=== PATIENT | female | born 1965 | race African-American/Black ===

== ENCOUNTER 2024-06-30 13:34 | Emergency (ER) | payer BC, SELFPAY ==
--- NOTE | 2024-06-30 13:45 | ED_ITS ---
HPI - General Adult General Chief complaint: Neck Pain/Injury Stated complaint: Neck Pain Time Seen by Provider: 06/30/24 13:47 Source: patient, RN notes reviewed and old records reviewed Mode of arrival: ambulatory Limitations: no limitations History of Present Illness HPI narrative: 59-year-old female presents to the [facility] with bilateral neck pain, no midline tenderness since Tuesday, 3 days. No redness, no erythema. No rashes noted. Patient reports pain with movement. Especially when turning head. Able to talk chin to chest without issue. Able to shrug shoulders. Denies any numbness or tingling below sore area. No loss or retention of bowel or bladder. No midline tenderness. Has taken Tylenol. Related Data Home Medications ?Medication ?Instructions ?Recorded ?Confirmed ?Last Taken ?Type atorvastatin 40 mg tablet mg 06/30/24 Unknown History empagliflozin 25 mg tablet mg 06/30/24 Unknown History (Jardiance) estradiol 1 mg tablet mg 06/30/24 Unknown History ferrous sulfate 325 mg (65 mg mg 06/30/24 Unknown History iron) tablet (FeroSul) lisinopril 5 mg tablet mg 06/30/24 Unknown History semaglutide 2 mg/dose (8 mg/3 mL) mg subcut 06/30/24 Unknown History subcutaneous pen injector (Ozempic) Allergies Allergy/AdvReac Type Severity Reaction Status Date / Time nortriptyline Allergy Mild Headache Verified 06/30/24 13:55 tramadol Allergy Mild Headache Verified 06/30/24 13:55 Review of Systems 2 Review of Systems: All systems reviewed & are unremarkable except as noted in HPI and below Constitutional: Constitutional: Reports no additional constitutional complaints ENT: Reports system reviewed and no additional complaints, except as documented Cardiovascular: Cardiovascular: Reports no additional cardiovascular complaints, Denies chest pain and Denies dyspnea Respiratory: Respiratory: Reports no additional respiratory complaints, Denies chest congestion, Denies cough and Denies dyspnea Musculoskeletal: Musculoskeletal: Reports as per HPI Integumentary/Breasts: Skin/Breast: Reports system reviewed and no additional complaints, except as docu [facility] Past Medical History Medical History History of anemia Type 2 diabetes mellitus High cholesterol Hypertension Surgical History Surgical History History of hysterectomy History of knee surgery Comments At the time of my signature, I reviewed and agree with the nursing past medical, surgical, social, and family history. There is no relevant family history pertinent to the patient complaint. Exam 2 Const: General: cooperative, healthy appearing, comfortable, no acute distress, well developed, alert and well nourished Nutritional Appearance: w ell nourished Orientation/consciousness: patient oriented x3 Limitations: no limitations HENMT: Head: normal to inspection Throat: posterior oropharynx normal, uvula midline and no uvular edema Eyes: General: appearance normal, both eyes and all related structures A lignment and Position: alignment normal Eyelids: eyelids normal Pupils: E qual, round and reactive pupils present Neck: Neck: normal visual inspection, full ROM, no lymphadenopathy and no meningeal signs Neck images: 1. Paraspinal pain. No midline tenderness, no erythema, ecchymosis. Chest: Chest palpation & inspection: normal inspection of the chest Resp: Effort & Inspection: normal respiratory effort and able to speak in complete sentences Auscultation: clear to auscultation bilaterally, no crackles, no rales, no rhonchi and no wheezes Cardio: Rate: regular rate Back/Spine/Pelvis: Back: no CVA tenderness and No back tenderness Skin: General skin exam: normal color and no rashes or lesions noted Neuro: General: patient oriented x3, gait normal, moves all extremities and no meningeal signs Cognition (Neuro): normal cognition Speech: normal speech Gait exam (Neuro): Normal gait present Extrem: General: normal to inspection, full ROM, capillary refill normal and normal gait Psych: Appearance: grossly normal and well kempt Mental Status: mental status grossly normal Speech and movement: Normal speech and movement present and Clear speech present Affect: normal affect Attitude: cooperative Course Course Level of Care: Express Care Visit Vital Signs Vital signs: Vital Signs Temperature 97.6 F 06/30/24 13:47 Pulse Rate 88 06/30/24 13:47 Respiratory Rate 16 06/30/24 13:47 Blood Pressure 109/55 L 06/30/24 13:47 Pulse Oximetry 100 06/30/24 13:47 Oxygen Delivery Room Air 06/30/24 13:47 Temperature 97.6 F 06/30/24 13:47 Pulse Rate 88 06/30/24 13:47 Respiratory Rate 16 06/30/24 13:47 Blood Pressure 109/55 L 06/30/24 13:47 Pulse Oximetry 100 06/30/24 13:47 Oxygen Delivery Room Air 06/30/24 13:47 Reviewed Medical Decision Making MDM Narrative Medical decision making narrative: Patient presents with 3 day history of posterior neck pain without midline tenderness. Denies injury. No neurologic deficits noted on exam. Able to shrug shoulders without issue. Pain is worse with turning. Patient's exam consistent with muscle strain, will prescribe muscle relaxers, anti-inflammatory. Discussion had with signs and symptoms to proceed to emergency room which patient verbalized understanding. Discharge instructions reviewed with patient, as well as provided in writing per nursing staff. The instructions also include specific and strict return/GO TO THE ER as well as f/u information. All questions have been answered, and the patient deny any further questions with discharge and discharge plan. Some parts of this dictation were generated by voice recognition software and may contain typographical and/or grammatical inaccuracies. Differential Diagnosis Differential Diagnosis: Muscle strain, pain, cervical radiculopathy, fracture, arthritis Medical Records Medical records reviewed: Yes I reviewed the external patient's medical records. Vital Signs Vital Signs: Vital Signs Temperature 97.6 F 06/30/24 13:47 Pulse Rate 88 06/30/24 13:47 Respiratory Rate 16 06/30/24 13:47 Blood Pressure 109/55 L 06/30/24 13:47 Pulse Oximetry 100 06/30/24 13:47 Oxygen Delivery Room Air 06/30/24 13:47 Temperature 97.6 F 06/30/24 13:47 Pulse Rate 88 06/30/24 13:47 Respiratory Rate 16 06/30/24 13:47 Blood Pressure 109/55 L 06/30/24 13:47 Pulse Oximetry 100 06/30/24 13:47 Oxygen Delivery Room Air 06/30/24 13:47 Reviewed Lab Data Lab results reviewed: Yes I reviewed the patient's lab results. Labs: Reviewed Critical Care Time Critical Care Time Critical Care Time: No Discharge Plan Discharge Clinical Impression: Acute strain of neck muscle Qualifiers: Encounter type: initial encounter Qualified Code(s): S16.1XXA - Strain of muscle, fascia and tendon at neck level, initial encounter Patient Disposition: Home Condition: Stable Instructions: Antibiotic Form, Acute Neck Pain (ED) Additional Instructions: Take ibuprofen as directed to decrease inflammation and to help pain. Take Baclofen (muscle relaxer) as directed. Do not drink, drive, operate machinery, or do anything dangerous while taking this medication Exercise:Combine aerobic exercise, like walking or swimming, with specific exercises to keep the muscles in your back and abdomen strong and flexible. Proper Lifting:Be sure to lift heavy items with your legs, not your back. Do not bend over to pick something up. Keep your back straight and bend at your knees. Weight:Maintain a healthy weight. Being overweight puts added stress on your lower back. Avoid Smoking:Both the smoke and the nicotine cause your spine to age faster than normal. Proper Posture:Good posture is important for avoiding future problems. A therapist can teach you how to safely stand, sit, and lift. Use warm moist heat to help with pain. Using topical such as Biofreeze, Monster-Murray or Aspercreme can also help Follow up with Primary provider in 2-3 days, This may become a chronic condition and they will be the one to help manage your pain and order additional testing. Go to the nearest ER if you develop problems with bladder/bowel function, weakness or loss of feeling in one or both of your legs. Patient Language: Estonian Prescriptions: New baclofen 10 mg tablet 10 mg PO TID PRN (Reason: muscle pain) Qty: 10 0RF ibuprofen 600 mg tablet 600 mg PO TID PRN (Reason: fever or pain) Qty: 30 0RF No Action atorvastatin 40 mg tablet estradiol 1 mg tablet ferrous sulfate [FeroSul] 325 mg (65 mg iron) tablet lisinopril 5 mg tablet Jardiance 25 mg tablet Ozempic 2 mg/dose (8 mg/3 mL) pen injector SUBCUT Follow-up/Referrals: Andrew,Fabien Ortega MD [Primary Care Provider] - 1 Week ([facility] care follow up ) Time of Disposition: 13:56
[2024-06-30 13:47] VITALS: BP 109/55; PULSE 88; RESP 16; TEMP 36.4; O2SAT 100
== END 2024-06-30 14:00 | disposition home or self-care (01) ==
PROVIDERS: Emergency Provider Nurse Practitioner; PCP Family Medicine
DX: S16.1XXA Strain of muscle, fascia and tendon at neck level, initial encounter (principal); X58.XXXA Exposure to other specified factors, initial encounter; E11.9 Type 2 diabetes mellitus without complications; E78.00 Pure hypercholesterolemia, unspecified; I10 Essential (primary) hypertension
CPT/HCPCS: 99203; G0463